=== PATIENT | female | born 1985 | race Caucasian/White ===

== ENCOUNTER 2018-02-01 23:40 | Emergency (ER) | payer OTHER ==
[~2018-02-01] VITALS: Ht 152.4 cm; Wt 58.6 kg
[2018-02-01 23:51] VITALS: TEMP 98
[2018-02-02] MEDS ORDERED: PREDNISONE20 MG PO (00:31)
[2018-02-02] MEDS ORDERED: DOXYCYCLINE 10100 MG PO (00:31)
[2018-02-02] MEDS ORDERED: CEPHALEXIN500 M1 PO (00:32)
[2018-02-02 01:57] VITALS: BP 119/77; PULSE 76
== END 2018-02-02 01:57 | disposition home or self-care (01) ==
LOC: COL.ER 23:40
DX: L03.116 Cellulitis of left lower limb (principal)

== ENCOUNTER → 2018-06-26 | Outpatient (CLI) | payer OTHER ==
[~2018-06-26] MED LIST: CEPHALEXIN500 M1 PO; DOXYCYCLINE 10100 MG PO; PREDNISONE20 MG PO
== END ==
LOC: MC.RAD 13:00
DX: N60.02 Solitary cyst of left breast (principal)